=== PATIENT | male | born 1980 | race Caucasian/White ===

== ENCOUNTER 2017-05-05 18:14 | Inpatient (IN) | payer OTHER ==
[2017-05-05 18:58] LABS: BASOPHIL 1.1 % (0-2.0); EOSINOPHIL 0.9 % (0-4.5); MCH 29.7 pg (25.7-33.7); MCHC 33.6 g/dl (32.0-35.9); MEAN CELL VOLUME 88.6 fl (80-96); NEUTROPHILS 78.3 % (42.8-82.8); PLATELET COUNT 195 K/MM3 (134-434); RDW 13.4 % (11.9-15.9); WHITE BLOOD COUNT 10.7 K/mm3 (4.0-10.0)
[2017-05-05 19:20] LABS: INR 1.16 (0.82-1.09); PROTHROMBIN TIME (PATIENT) 12.8 SEC (9.98-11.88)
[2017-05-05 19:40] LABS: ALBUMIN 3.8 g/dl (3.4-5.0); ALK PHOS 116 U/L (45-117); ANION GAP 7 (8-16); BILIRUBIN,TOTAL 0.3 mg/dL (0.2-1.0); CALCIUM 8.3 mg/dL (8.5-10.1); CO2 26 mmol/L (21-32); CREATININE 0.9 mg/dL (0.7-1.3); GLUCOSE,RANDOM 91 mg/dL (74-106); SGOT/AST 11 U/L (15-37); SGPT/ALT 28 U/L (12-78); TOT PROT 7.7 g/dl (6.4-8.2)
--- NOTE | 2017-05-05 19:52 | PDOC ---
History of Present Illness - General History Source: Patient Exam Limitations: No Limitations - History of Present Illness Initial Comments: 05/05/17 20:00 The patient is a 36-year-old male, with a significant past medical hx of epilepsy, who presents to the ED s/p 3 seizures at work today and fever. Pt states that his seizures lasted a few seconds. The pt has seizures twice a month and usually he falls down when he is having one. Pt takes Carbamazepine, Vimpat, and Clobazam. Pts temperature was measured to be 100.1 upon arrival to the ED. He also reports having 1 week of pain in rectum and has noted some swelling in the area. The pain radiates to his groin area. Pt is followed by a Neurologist at [facility]. The patient reports cough but only in the morning. He denies any chills, nausea, vomiting, diarrhea, or abdominal pain. He denies any chest pain or shortness of breath. <Rita Leon - Last Filed: 05/06/17 00:25> - General History Source: Patient Exam Limitations: No Limitations <Anabela Thomas - Last Filed: 05/06/17 00:54> - General Chief Complaint: Seizure Stated Complaint: FEVER,SEIZURE Time Seen by Provider: 05/05/17 19:31 Past History <Rita Leon - Last Filed: 05/06/17 00:25> - Past Medical History Seizures: Yes (EPILEPSY.) - Suicide/Smoking/Psychosocial Hx Smoking History: Never smoked Hx Alcohol Use: No Drug/Substance Use Hx: No Substance Use Type: None <Anabela Thomas - Last Filed: 05/06/17 00:54> - Past Medical History Allergies/Adverse Reactions: Allergies Allergy/AdvReac Type Severity Reaction Status Date / Time No Known Allergies Allergy Verified 05/05/17 18:15 Home Medications: Ambulatory Orders Carbamazepine [Tegretol -] 600 mg PO BID 05/05/17 Clobazam [Onfi -] 15 mg PO BID 05/05/17 Lacosamide [Vimpat -] 200 mg PO BID 05/05/17 Review of Systems - Review of Systems Able to Perform ROS?: Yes Comments:: 05/05/17 20:01 GENERAL/CONSTITUTIONAL: (+)fever. No chills. No weakness. HEAD, EYES, EARS, NOSE AND THROAT: No change in vision. No ear pain or discharge. No sore throat. CARDIOVASCULAR: No chest pain or shortness of breath. RESPIRATORY: (+)cough. No wheezing, or hemoptysis. GASTROINTESTINAL: No nausea, vomiting, diarrhea or constipation. GENITOURINARY: (+)swelling near rectum, pain to area, groin pain. No dysuria, frequency, or change in urination. MUSCULOSKELETAL: No joint or muscle swelling. No neck or back pain. SKIN: No rash NEUROLOGIC: (+)seizure. No headache, vertigo, loss of consciousness, or change in strength/sensation. ENDOCRINE: No increased thirst. No abnormal weight change. HEMATOLOGIC/LYMPHATIC: No anemia, easy bleeding, or history of blood clots. ALLERGIC/IMMUNOLOGIC: No hives or skin allergy. <Rita Leon - Last Filed: 05/06/17 00:25> *Physical Exam - Vital Signs Last Vital Signs Temp Pulse Resp BP Pulse Ox 100 F H 89 18 141/73 100 05/05/17 19:26 05/05/17 18:15 05/05/17 18:15 05/05/17 18:15 05/05/17 18:15 - Physical Exam Comments: 05/05/17 20:03 GENERAL: Awake, alert, and fully oriented, in no acute distress HEAD: Head is atraumatic EYES: PERRLA, EOMI, sclera anicteric, conjunctiva clear ENT: Auricles normal inspection, hearing grossly normal, nares patent, oropharynx clear without exudates. Moist mucosa NECK: Normal ROM, supple, no lymphadenopathy, JVD, or masses LUNGS: Breath sounds equal, clear to auscultation bilaterally. No wheezes, and no crackles HEART: Regular rate and rhythm, normal S1 and S2, no murmurs, rubs or gallops ABDOMEN: Soft, nontender, normoactive bowel sounds. No guarding, no rebound. No masses EXTREMITIES: Normal range of motion, no edema. No clubbing or cyanosis. No cords, erythema, or tenderness NEUROLOGICAL: Cranial nerves II through XII intact. Normal speech, normal gait SKIN: Warm, Dry, normal turgor, no rashes or lesions noted Rectal Exam: (+)right-sided perianal fullness and induration with pain on digital exam. Mild erythema. No visible scrotal or inguinal erythema. Testicals are nontender. <Rita Leon - Last Filed: 05/06/17 00:25> - Vital Signs Last Vital Signs Temp Pulse Resp BP Pulse Ox 100 F H 89 18 141/73 100 05/05/17 19:26 05/05/17 18:15 05/05/17 18:15 05/05/17 18:15 05/05/17 18:15 <Anabela Thomas - Last Filed: 05/06/17 00:54> ED Treatment Course - LABORATORY CBC & Chemistry Diagram: 05/05/17 18:50 05/05/17 18:54 - ADDITIONAL ORDERS Additional order review: Laboratory Results 05/05/17 05/05/17 05/05/17 18:54 18:54 18:54 PT with INR 12.80 H INR 1.16 H Sodium 136 Potassium 3.9 Chloride 103 Carbon Dioxide 26 Anion Gap 7 L BUN 16 Creatinine 0.9 Creat Clearance w eGFR > 60 Random Glucose 91 Lactic Acid 1.0 Calcium 8.3 L Total Bilirubin 0.3 AST 11 L ALT 28 Alkaline Phosphatase 116 Total Protein 7.7 Albumin 3.8 05/05/17 18:50 RBC 4.48 MCV 88.6 MCHC 33.6 RDW 13.4 MPV 8.0 Neutrophils % 78.3 Lymphocytes % 11.0 Monocytes % 8.7 Eosinophils % 0.9 Basophils % 1.1 <Rita Leon - Last Filed: 05/06/17 00:25> - LABORATORY CBC & Chemistry Diagram: 05/05/17 18:50 05/05/17 18:54 - ADDITIONAL ORDERS Additional order review: Laboratory Results 05/05/17 05/05/17 05/05/17 18:54 18:54 18:54 PT with INR 12.80 H INR 1.16 H Sodium 136 Potassium 3.9 Chloride 103 Carbon Dioxide 26 Anion Gap 7 L BUN 16 Creatinine 0.9 Creat Clearance w eGFR > 60 Random Glucose 91 Lactic Acid 1.0 Calcium 8.3 L Total Bilirubin 0.3 AST 11 L ALT 28 Alkaline Phosphatase 116 Total Protein 7.7 Albumin 3.8 05/05/17 18:50 RBC 4.48 MCV 88.6 MCHC 33.6 RDW 13.4 MPV 8.0 Neutrophils % 78.3 Lymphocytes % 11.0 Monocytes % 8.7 Eosinophils % 0.9 Basophils % 1.1 <Anabela Thomas - Last Filed: 05/06/17 00:54> Medical Decision Making - Medical Decision Making 05/06/17 00:17 Dr. Foster was paged and notified via phone service. Case was discussed with Dr. Foster at 00:25 and pt will be admitted to the Hospitalist service. <Rita Leon - Last Filed: 05/06/17 00:25> - Medical Decision Making 05/05/17 19:50 36 yo male with h/o epilepsy here today s/p three seizures at work. is followed by nuerology at [facility]. take vimpat, carbamezepine, and Clobazam. has had a pain in his rectum for 1 week. now having fever x 3 days. now at baseline. seizure lasted only few seconds. usually falls down. no n/v no focal nuero deficit. has been compliant with medications. on exam awake alert head at. lungs clear heart rrr no mrg. abd soft nt. rectum right sided perianal fullness, induration with pain digital exam. mild erythema. no visible scrotal or inguinal erythema. testicle nontender. ext wwp. differential: infection sepsis, perirectal abscess, subtherapuetic levels. plan ct pelvis/ rectum, fluids, labs, cultures. tylenol 05/06/17 00:23 d/w surgery regarding noted 2/x 1 cm abscess perianal on ct. d/w patient. will see pt in am. aayush admit for iv antiobtiocs. and control of seizures. <Anabela Thomas - Last Filed: 05/06/17 00:54> *DC/Admit/Observation/Transfer - Attestations Scribe Attestion: 05/05/17 20:04 Documentation prepared by Rita Leon, acting as medical receptionist assistant for Anabela Thomas MD. <Rita Leon - Last Filed: 05/06/17 00:25> - Discharge Dispostion Admit: Yes <Anabela Thomas - Last Filed: 05/06/17 00:54> Diagnosis at time of Disposition: Seizure, Perianal abscess
[2017-05-05] MEDS ORDERED: SODIUM CHLORIDE 0.9% 1000 ML INFUS.BAG IV ONE (19:53)
[2017-05-05] MEDS ORDERED: ACETAMINOPHEN 1000 MG/100 ML VIAL (NON FORMULARY) IVPB ONE (19:53)
[2017-05-05] MEDS ORDERED: ACETAMINOPHEN INJECTION 100 ML IVPB ONE (20:10)
[2017-05-06] MEDS ORDERED: CLINDAMYCIN 900 MG PREMIX IVPB 50 ML IVPB ONE ×2 (00:10→00:17)
[2017-05-06] MEDS ORDERED: IBUPROFEN 600 MG TABLET (FP) PO ONE ×2 (00:43→00:53)
--- NOTE | 2017-05-06 01:01 | HP ---
CHIEF COMPLAINT: rectal pain/fever PCP: none, follows with a neurologist at [facility] HISTORY OF PRESENT ILLNESS: This is a 36 year old male with a past medical history of seizure disorder who presented to the ED with a 1 week h/o anal pain and fever x 3 days. Pt also s/p seizure x 3 today at work. Upon exam, reports pain is slightly better after tylenol and motrin. ER course was notable for: (1) WBC 10.7, lactic acid 1.0 (2) CT with perianal abscess (3) clindamycin 900mg given x 1 Recent Travel: pt denies PAST MEDICAL HISTORY: seizure disorder PAST SURGICAL HISTORY: pt denies Social History: Smoking: pt denies Alcohol: pt denies Drugs: pt denies Family History: mother and father alive and well, no medical problems 2 brothers, 3 sisters alive and well, no medical problems 2 children, one with asthma Allergies No Known Allergies Allergy (Verified 05/05/17 18:15) HOME MEDICATIONS: 3 Medication Instructions Recorded Carbamazepine [Tegretol -] 600 mg PO BID 05/05/17 Clobazam [Onfi -] 15 mg PO BID 05/05/17 Lacosamide [Vimpat -] 200 mg PO BID 05/05/17 REVIEW OF SYSTEMS CONSTITUTIONAL: Present: fever, chills Absent: diaphoresis, generalized weakness, malaise, loss of appetite, weight change HEENT: Absent: rhinorrhea, nasal congestion, throat pain, throat swelling, difficulty swallowing, mouth swelling, ear pain, eye pain, visual changes CARDIOVASCULAR: Absent: chest pain, syncope, palpitations, irregular heart rate, lightheadedness , peripheral edema RESPIRATORY: Absent: cough, shortness of breath, dyspnea with exertion, orthopnea, wheezing, stridor, hemoptysis GASTROINTESTINAL: Present: anal pain Absent: abdominal pain, abdominal distension, nausea, vomiting, diarrhea, constipation, melena, hematochezia GENITOURINARY: Absent: dysuria, frequency, urgency, hesitancy, hematuria, flank pain, genital pain MUSCULOSKELETAL: Absent: myalgia, arthralgia, joint swelling, back pain, neck pain SKIN: Absent: rash, itching, pallor HEMATOLOGIC/IMMUNOLOGIC: Absent: easy bleeding, easy bruising, lymphadenopathy, frequent infections ENDOCRINE: Absent: unexplained weight gain, unexplained weight loss, heat intolerance, cold intolerance NEUROLOGIC: Present: seizure Absent: headache, focal weakness or paresthesias, dizziness, unsteady gait, mental status changes, bladder or bowel incontinence PSYCHIATRIC: Absent: anxiety, depression, suicidal or homicidal ideation, hallucinations. PHYSICAL EXAMINATION Vital Signs - 24 hr 3 05/05/17 05/05/17 05/06/17 18:15 19:26 00:23 Temperature 100.1 F H 100 F H 98.8 F Pulse Rate 89 Respiratory 18 Rate Blood Pressure 141/73 O2 Sat by Pulse 100 Oximetry (%) GENERAL: Awake, alert, and fully oriented, in no acute distress. HEAD: Normal with no signs of trauma. EYES: Pupils equal, round and reactive to light, extraocular movements intact, sclera anicteric, conjunctiva clear. No lid lag. EARS, NOSE, THROAT: Ears normal, nares patent, oropharynx clear without exudates. Moist mucous membranes. NECK: Normal range of motion, supple without lymphadenopathy, JVD, or masses. LUNGS: Breath sounds equal, clear to auscultation bilaterally. No wheezes, and no crackles. No accessory muscle use. HEART: Regular rate and rhythm, normal S1 and S2 without murmur, rub or gallop. ABDOMEN: Soft, nontender, not distended, normoactive bowel sounds, no guarding, no rebound, no masses. No hepatomegaly or splenomegaly. GENITALIA: + area of erythema, tenderness and induration approx 5.5cm x 2cm to the right perianal area. induration extends into perineum between anus and scrotum MUSCULOSKELETAL: Normal range of motion at all joints. No bony deformities or tenderness. No CVA tenderness. UPPER EXTREMITIES: 2+ pulses, warm, well-perfused. No cyanosis. No clubbing. No peripheral edema. LOWER EXTREMITIES: 2+ pulses, warm, well-perfused. No calf tenderness. No peripheral edema. NEUROLOGICAL: Cranial nerves II-XII intact. Normal speech. Normal gait. PSYCHIATRIC: Cooperative. Good eye contact. Appropriate mood and affect. SKIN: Warm, dry, normal turgor, no rashes or lesions noted, normal capillary refill. Laboratory Results - last 24 hr 3 05/05/17 05/05/17 05/05/17 05/05/17 18:50 18:54 18:54 20:35 WBC 10.7 H RBC 4.48 Hgb 13.3 Hct 39.7 MCV 88.6 MCH 29.7 MCHC 33.6 RDW 13.4 Plt Count 195 MPV 8.0 Neutrophils % 78.3 Lymphocytes % 11.0 Monocytes % 8.7 Eosinophils % 0.9 Basophils % 1.1 PT with INR 12.80 H INR 1.16 H Sodium 136 Potassium 3.9 Chloride 103 Carbon Dioxide 26 Anion Gap 7 L BUN 16 Creatinine 0.9 Creat Clearance w eGFR > 60 Random Glucose 91 Lactic Acid 1.0 Calcium 8.3 L Total Bilirubin 0.3 AST 11 L ALT 28 Alkaline Phosphatase 116 Total Protein 7.7 Albumin 3.8 Carbamazepine 8.8 Radiology Reports Abdomen and pelvis CT (with contrast) Clinical information: rectal pain, evaluate for perirectal abscess Multiplanar imaging was performed following the intravenous administration of nonionic contrast. Oral contrast was not administered. There appears to be a subtle approximately 2 x 1 cm area of fluid accumulation posterior to the anus (transaxial images 172 - 174). There is no definite perianal or perirectal soft tissue edema. The ischiorectal fossae appear symmetric. There is no obvious rectal wall thickening. No extraluminal air is identified. The liver, spleen, pancreas, gallbladder, adrenal glands and kidneys demonstrate no discrete abnormality. No evidence of pneumoperitoneum, free intraperitoneal fluid or bowel obstruction. There is no aortic aneurysm. No obvious lymphadenopathy is seen. There is no definite pelvic pathology. Impression: There appears to be a subtle 2 x 1 cm area of fluid accumulation within the posterior perianal region which may represent a small abscess. MRI evaluation may be considered, nonemergent unless otherwise clinically indicated. No definite perianal or perirectal soft tissue edema is identified. Reported By: Steven Bartlett MD 05/05/17 2327 ASSESSMENT/PLAN: 36yM with a PMH of seizure disorder presented to the ED with anal pain and fever. Perianal abscess - start levaquin and flagyl - surgery consulted by ED. Dr. Hankins to attend pt in am - NPO for possible OR Seizure disorder - missed PM dose on 05/06 of seizure meds, will give now - vimpat nonformulary, pt instructed to have family bring in. DVT PPX - chemoprophylaxis deferred as pt fully ambulatory and expected LOS <48h FEN - NS @ 100cc/hr while NPO - BMP in AM - NPO for possible OR Dispo: Pt currently requires inpatient management of his emergent condition but expected LOS is <2 midnights. Visit type - Emergency Visit Emergency Visit: Yes ED Registration Date: 05/05/17 Care time: The patient presented to the Emergency Department on the above date and was hospitalized for further evaluation of their emergent condition. - New Patient This patient is new to me today: Yes Date on this admission: 05/06/17 - Critical Care Critical Care patient: No
[2017-05-06] MEDS: LEVOFLOXACIN 500 MG IVPB 100 ML IVPB SCH ×2 (02:23→21:27)
[2017-05-06] MEDS: SODIUM CHLORIDE 1,000 ML IV SCH ×3 (02:23→08:41)
[2017-05-06] MEDS: carBAMazepine 200 MG TABLET PO SCH ×3 (02:23→21:54)
[2017-05-06] MEDS: cloBAZam 10 MG TABLET PO SCH ×3 (02:23→21:26)
[2017-05-06] MEDS ORDERED: LEVOFLOXACIN 500 MG IVPB 100 ML IVPB ONE (02:24)
[2017-05-06] MEDS: METRONIDAZOLE 500 MG PREMIXED 100 ML IVPB SCH ×4 (04:01→17:21)
[2017-05-06 04:22] VITALS: BMI 34.6
[2017-05-06 08:26] LABS: EOSINOPHIL 1.8 % (0-4.5); MCH 29.8 pg (25.7-33.7); MCHC 33.4 g/dl (32.0-35.9); MEAN CELL VOLUME 89.2 fl (80-96); MEAN PLT VOLUME 8.7 fl (7.5-11.1); PLATELET COUNT 191 K/MM3 (134-434); RDW 13.3 % (11.9-15.9); WHITE BLOOD COUNT 9.8 K/mm3 (4.0-10.0)
[2017-05-06 08:40] LABS: ANION GAP 9 (8-16); CALCIUM 7.7 mg/dL (8.5-10.1); CO2 25 mmol/L (21-32); CREATININE 0.8 mg/dL (0.7-1.3); GLUCOSE,RANDOM 81 mg/dL (74-106); MAGNESIUM 2.2 mg/dL (1.8-2.4)
[2017-05-06] MEDS ORDERED: morphine CARPU-JECT 2 MG/1 ML DISP.SYRIN IVPUSH ONE (09:20)
[2017-05-06] MEDS ORDERED: PT OWN MED DRAWER 7, Y5N ONE (09:50)
[2017-05-06] MEDS: LACOSAMIDE 50 MG TABLET PO SCH ×2 (09:55→21:25)
[2017-05-06] MEDS ORDERED: carBAMazepine 200 MG TABLET PO SCH (10:00)
[2017-05-06] MEDS ORDERED: cloBAZam 10 MG TABLET PO SCH (10:00)
[2017-05-06] MEDS ORDERED: LIDOCAINE HCL 1%, 10 MG/ML (20ML VIAL) ONE (11:19)
--- NOTE | 2017-05-06 11:19 | HOSP ---
Subjective - Review of Symptoms Subjective: PT seen and examined. His pain is improved following morphine, however it is painful to move around Physical Examination Vital Signs: Vital Signs Temperature 98 F 05/06/17 09:04 Pulse Rate 69 05/06/17 09:04 Respiratory Rate 18 05/06/17 09:04 Blood Pressure 116/63 05/06/17 09:04 O2 Sat by Pulse Oximetry (%) 98 05/06/17 04:00 Constitutional: Yes: Well Nourished Eyes: Yes: Conjunctiva Clear Neck: Yes: Trachea Midline Cardiovascular: Yes: Regular Rate and Rhythm, S1, S2 Respiratory: Yes: Regular, CTA Bilaterally Gastrointestinal: Yes: Normal Bowel Sounds, Soft ...Rectal Exam: Yes: Other (R medial buttock/perineum erythema, indurated, ++ tenderness) Edema: No Neurological: Yes: Alert, Oriented, Cran Nerves II-XII Intact Labs: CBC, BMP 05/06/17 06:00 05/06/17 06:00 Hospitalist Encounter Assessment: Assessment: 36 year old male with seizure disorder admitted with rectal pain Plan: 1. Perianal abscess - I&D tomorrow - Continue levaquin (day 2), flagyl - Surgery consult appreciated - CT scan noted - NPO after midnight 2. Seizure disorder - No seizures reported this AM - Continue Vimpat - Continue Tegretol - Continue onfi
--- NOTE | 2017-05-06 11:27 | CONSULT ---
Consult - text type - Consultation Consultation Note: 36 yr old wtih smal early perianal abcess continue antibiotics warm compresses and plan I&D for am
[2017-05-06] MEDS ORDERED: SODIUM CHLORIDE 1,000 ML IV SCH ×2 (11:36→18:08)
[2017-05-06] MEDS: oxyCODONE HCL 5 MG TABLET PO PRN ×3 (13:03→23:48)
[2017-05-06] MEDS ORDERED: ACETAMINOPHEN 325 MG TABLET (FP) ONE (17:52)
[2017-05-06] MEDS: ACETAMINOPHEN 325 MG TABLET (FP) PO PRN ×2 (17:53→23:47)
[2017-05-06] MEDS ORDERED: SODIUM CHLORIDE 1,000 ML IV STA ×2 (18:00→19:30)
--- NOTE | 2017-05-06 19:32 | HOSP ---
Subjective - Review of Symptoms Events since last encounter: Advised at around 6:00pm patient spiked fever to 102.5 and BP dropped 125 to 106 systolic. Ordered NS x 2L bolus, then continue @ 125mL/hr. Blood and urine cultures, cbc, cmp, lactic acid. Physical Examination Vital Signs: Vital Signs Temperature 102.1 F H 05/06/17 19:20 Pulse Rate 105 H 05/06/17 19:00 Respiratory Rate 20 05/06/17 19:00 Blood Pressure 123/60 05/06/17 19:00 O2 Sat by Pulse Oximetry (%) 98 05/06/17 09:00 Labs: CBC, BMP 05/06/17 06:00 05/06/17 06:00
[2017-05-06 20:23] LABS: BASOPHIL 0.4 % (0-2.0); EOSINOPHIL 0.7 % (0-4.5); MCH 29.9 pg (25.7-33.7); MCHC 33.9 g/dl (32.0-35.9); MEAN CELL VOLUME 88.2 fl (80-96); MEAN PLT VOLUME 8.2 fl (7.5-11.1); NEUTROPHILS 76.5 % (42.8-82.8); PLATELET COUNT 189 K/MM3 (134-434); RDW 13.1 % (11.9-15.9); WHITE BLOOD COUNT 9.7 K/mm3 (4.0-10.0)
[2017-05-06 21:01] LABS: ALK PHOS 94 U/L (45-117); ANION GAP 7 (8-16); BILIRUBIN,TOTAL 0.5 mg/dL (0.2-1.0); CALCIUM 7.5 mg/dL (8.5-10.1); CO2 26 mmol/L (21-32); CREATININE 1.1 mg/dL (0.7-1.3); GLUCOSE,RANDOM 124 mg/dL (74-106); SGOT/AST 7 U/L (15-37); SGPT/ALT 20 U/L (12-78); TOT PROT 6.7 g/dl (6.4-8.2)
[2017-05-06 21:57] LABS: URINE APPEARANCE CLEAR; URINE BILIRUBIN NEGATIVE (NEGATIVE); URINE BLOOD NEGATIVE (NEGATIVE); URINE COLOR YELLOW; URINE GLUCOSE (UA) 1+ (NEGATIVE); URINE KETONE NEGATIVE (NEGATIVE); URINE NITRITE NEGATIVE (NEGATIVE); URINE PROTEIN NEGATIVE (NEGATIVE); URINE UROBILINOGEN NEGATIVE mg/dL (0.2-1.0)
[2017-05-06] MEDS ORDERED: PSEUDOEPHEDRINE HCL 60 MG TABLET PO ONE (23:27)
[2017-05-06] MEDS ORDERED: PSEUDOEPHEDRINE HCL 30 MG TABLET PO ONE (23:45)
[2017-05-07] MEDS: METRONIDAZOLE 500 MG PREMIXED 100 ML IVPB SCH ×2 (01:22→17:57)
[2017-05-07] MEDS: oxyCODONE HCL 5 MG TABLET PO PRN ×3 (05:06→19:54)
[2017-05-07] MEDS: ACETAMINOPHEN 325 MG TABLET (FP) PO PRN ×2 (05:07→19:55)
[2017-05-07] MEDS ORDERED: PT OWN MED DRAWER 7, Y5N ONE ×2 (09:42→14:49)
[2017-05-07] MEDS ORDERED: ONDANSETRON 4 MG/2 ML VIAL IVPUSH PRN (09:46)
[2017-05-07] MEDS ORDERED: oxyCODONE HCL 5 MG TABLET PO PRN (09:46)
[2017-05-07] MEDS: cloBAZam 10 MG TABLET PO SCH ×2 (09:46→21:16)
[2017-05-07] MEDS ORDERED: HYDROmorphone HCL CARPU-JECT 1 MG/1 ML DISP.SYRIN IVPUSH PRN ×2 (09:46→11:29)
[2017-05-07] MEDS: carBAMazepine 200 MG TABLET PO SCH ×2 (09:46→21:15)
[2017-05-07] MEDS: LACOSAMIDE 50 MG TABLET PO SCH ×2 (09:47→21:17)
[2017-05-07] MEDS ORDERED: LACTATED RINGERS SOLUTION 1,000 ML IV SCH ×2 (10:00→11:29)
[2017-05-07] MEDS ORDERED: PROPOFOL 20 ML ONE ×2 (10:14)
[2017-05-07] MEDS ORDERED: MIDAZOLAM HCL 2 MG/2 ML SINGLE DOSE VIAL ONE (10:14)
[2017-05-07] MEDS ORDERED: SUCCINYLCHOLINE CHLORIDE 200 MG/10 ML VIAL ONE ×2 (10:15→10:16)
[2017-05-07] MEDS ORDERED: ROCURONIUM BROMIDE 50 MG/5 ML VIAL ONE (10:17)
[2017-05-07] MEDS ORDERED: DEXAMETHASONE SOD PHOSPHATE 4 MG/1 ML VIAL ONE (10:18)
[2017-05-07] MEDS ORDERED: PHENYLEPHRINE HCL 10 MG/1 ML SINGLE DOSE VIAL ONE (10:18)
[2017-05-07] MEDS ORDERED: LIDOCAINE HCL/PF 2% SDV 5ML VIAL ONE (10:18)
[2017-05-07] MEDS ORDERED: METRONIDAZOLE 500 MG PREMIXED 100 ML IVPB ONE (10:24)
[2017-05-07] MEDS ORDERED: DESFLURANE GAS 240 ML BOTTLE IH ONE (10:26)
[2017-05-07 10:42] LABS: URINE LEUK ESTERASE Negative (NEGATIVE)
[2017-05-07] MEDS ORDERED: BUPIVACAINE HCL/PF 0.5% (5MG/ML) 10 ML VIAL ONE (10:44)
[2017-05-07] MEDS ORDERED: LIDOCAINE HCL 1%, 10 MG/ML (20ML VIAL) ONE (10:44)
--- NOTE | 2017-05-07 11:05 | OP ---
Operative Note - Note: Operative Date: 05/07/17 Pre-Operative Diagnosis: abdiel rectal abcess Operation: I&D of perirectal abcess Post-Operative Diagnosis: Same as Pre-op Surgeon: Osman Foster Anesthesia: MAC Specimens Removed: cultures Estimated Blood Loss (mls): 25
[2017-05-07] MEDS ORDERED: SODIUM CHLORIDE 1,000 ML IV SCH (11:29)
[2017-05-07] MEDS ORDERED: morphine CARPU-JECT 4 MG/1 ML DISP.SYRIN IVPUSH ONE (12:57)
--- NOTE | 2017-05-07 13:03 | PN ---
Physical Exam: SUBJECTIVE: Patient seen and examined at bedside. Able to ambulate with asssitance to the bathroom. s/p I&D, has rectal pain. OBJECTIVE: Vital Signs Period Temp Pulse Resp BP Sys/Wells Pulse Ox Last 24 Hr 97.7 F-102.8 F 69-105 16-20 105-127/54-79 95-100 GENERAL: The patient is awake, alert, and fully oriented, in no acute distress. LUNGS: Breath sounds equal, clear to auscultation bilaterally, no wheezes, no crackles, no accessory muscle use. HEART: Regular rate and rhythm, S1, S2 without murmur, rub or gallop. ABDOMEN: Soft, nontender, nondistended, normoactive bowel sounds, no guarding, no rebound, EXTREMITIES: 2+ pulses, warm, well-perfused, no edema NEUROLOGICAL: Cranial nerves II through XII grossly intact. Normal speech, steady gait BUTTOCK: right buttock at the intergluteal fold, surgical incision with packing , sanguinous drainage on dressing Laboratory Results - last 24 hr 05/06/17 05/06/17 05/06/17 20:16 20:17 20:17 WBC 9.7 RBC 4.15 Hgb 12.4 Hct 36.6 MCV 88.2 MCH 29.9 MCHC 33.9 RDW 13.1 Plt Count 189 MPV 8.2 Neutrophils % 76.5 Lymphocytes % 13.7 D Monocytes % 8.7 Eosinophils % 0.7 Basophils % 0.4 Sodium 138 Potassium 3.6 Chloride 105 Carbon Dioxide 26 Anion Gap 7 L BUN 12 Creatinine 1.1 D Creat Clearance w eGFR > 60 Random Glucose 124 H D Lactic Acid 1.5 Calcium 7.5 L Total Bilirubin 0.5 D AST 7 L D ALT 20 D Alkaline Phosphatase 94 Total Protein 6.7 Albumin 3.0 L D Urine Color Urine Appearance Urine pH Ur Specific Patriot Urine Protein Urine Glucose (UA) Urine Ketones Urine Blood Urine Nitrite Urine Bilirubin Urine Urobilinogen Ur Leukocyte Esterase 05/06/17 20:30 WBC RBC Hgb Hct MCV MCH MCHC RDW Plt Count MPV Neutrophils % Lymphocytes % Monocytes % Eosinophils % Basophils % Sodium Potassium Chloride Carbon Dioxide Anion Gap BUN Creatinine Creat Clearance w eGFR Random Glucose Lactic Acid Calcium Total Bilirubin AST ALT Alkaline Phosphatase Total Protein Albumin Urine Color Yellow Urine Appearance Clear Urine pH 6.0 Ur Specific Patriot 1.015 Urine Protein Negative Urine Glucose (UA) 1+ H Urine Ketones Negative Urine Blood Negative Urine Nitrite Negative Urine Bilirubin Negative Urine Urobilinogen Negative Ur Leukocyte Esterase Negative Current Medications Generic Name Dose Route Start Last Admin Trade Name Daivdq PRN Reason Stop Dose Admin Acetaminophen 650 mg 05/07/17 11:29 Tylenol - PO Q4H PRN FEVER OR PAIN Carbamazepine 600 mg 05/07/17 22:00 Tegretol - PO BID REBEKAH Clobazam 15 mg 05/07/17 22:00 Onfi - PO BID REBEKAH Docusate Sodium 300 mg 05/07/17 22:00 Colace - PO HS REBEKAH Metronidazole 100 mls @ 100 mls/hr 05/07/17 18:00 Flagyl 500mg Premixed Ivpb - IVPB Q8H-IV REBEKAH Ceftriaxone Sodium 1 gm/ 50 mls @ 100 mls/hr 05/07/17 13:00 05/07/17 15:05 Dextrose IVPB 100 mls/hr DAILY REBEKAH Administration Sodium Chloride 1,000 mls @ 75 mls/hr 05/07/17 16:16 Normal Saline - IV ASDIR REBEKAH Lacosamide 200 mg 05/07/17 22:00 Vimpat - PO BID REBEKAH Oxycodone HCl 5 mg 05/07/17 11:29 05/07/17 13:58 Roxicodone - PO 05/08/17 09:45 5 mg Q4H PRN Administration MILD PAIN Polyethylene Glycol 17 gm 05/07/17 22:00 Miralax (For Daily Use) - PO BID [facility] ASSESSMENT/PLAN 36 year-old male with a PMH significant for seizure disorder, admitted for perianal abscess. Perianal abscess s/p I&D 05/07 --Tm 102.8, Tc 97.7; no leukocytosis --stopped levaquin; continue metronidazole, start ceftriaxone --morphine 2mg x 1 --oxycodone, tylenol PRN --bowel regimen Seizure disorder --continue carbamazepine, clobazam, lacosamide F/E/N Fluids: NS @ 75mL/hr Electrolytes: replete as indicated Nutrition: regular diet DVT prophylaxis: lovenox Dispo: continues to require inpatient care. Full code. Visit type - Emergency Visit Emergency Visit: Yes ED Registration Date: 05/06/17 Care time: The patient presented to the Emergency Department on the above date and was hospitalized for further evaluation of their emergent condition. - New Patient This patient is new to me today: Yes Date on this admission: 05/07/17 - Critical Care Critical Care patient: No
--- NOTE | 2017-05-07 13:53 | OP ---
DATE OF OPERATION: 05/07/2017 PREOPERATIVE DIAGNOSIS: Perirectal abscess. POSTOPERATIVE DIAGNOSIS: Perirectal abscess. PROCEDURE: Incision and drainage of perirectal abscess. SURGEON: Osman Hooker MD ANESTHESIA: MAC with local. COMPLICATIONS: None. BLEEDING: Minimal. Patient tolerated procedure well. This is a 36-year-old male who presents with a perirectal abscess at outside on physical exam and confirmed by CAT scan. The patient is taken to the operating room for an incision and drainage of the infection. In the operating room, he was placed in supine position. After administration of MAC anesthesia, he was placed in lithotomy position. The area was prepped and draped. A timeout was observed. A cruciate incision was performed on the left side over the bulging mass. Purulent drainage was easily expressed at this point. Digital examination of the cavity was performed and all pockets properly drained. Irrigation with saline and control of bleeding with cautery and then the wound was packed with iodoform packing, 1-inch gauze. Sterile dressing was applied. The patient was returned to the recovery room awake, alert, in stable condition. He tolerated the procedure well. OSMAN HOOKER M.D. [id number]
[2017-05-07] MEDS: CEFTRIAXONE 1 GM in DEXTROSE 5%-WATER - 50 ML IVPB SCH (15:05)
[2017-05-07] MEDS: DOCUSATE SODIUM 100 MG CAPSULE (FP) PO SCH (21:17)
[2017-05-07] MEDS: POLYETHYLENE GLYCOL 3350 119 GM BTL PO SCH (21:17)
[2017-05-07] MEDS ORDERED: LEVOFLOXACIN 500 MG IVPB 100 ML IVPB SCH (22:00)
[2017-05-08] MEDS: METRONIDAZOLE 500 MG PREMIXED 100 ML IVPB SCH ×3 (01:35→17:11)
[2017-05-08] MEDS: oxyCODONE HCL 5 MG TABLET PO PRN ×2 (05:39→17:03)
[2017-05-08 06:58] LABS: BASOPHIL 0.6 % (0-2.0); EOSINOPHIL 3.5 % (0-4.5); MCHC 34.1 g/dl (32.0-35.9); NEUTROPHILS 63.5 % (42.8-82.8); PLATELET COUNT 191 K/MM3 (134-434); WHITE BLOOD COUNT 6.4 K/mm3 (4.0-10.0)
[2017-05-08 07:31] LABS: ALBUMIN 2.8 g/dl (3.4-5.0); ANION GAP 8 (8-16); CALCIUM 7.8 mg/dL (8.5-10.1); CO2 27 mmol/L (21-32); CREATININE 0.9 mg/dL (0.7-1.3); GLUCOSE,RANDOM 97 mg/dL (74-106); MAGNESIUM 2.4 mg/dL (1.8-2.4); SGOT/AST 7 U/L (15-37); SGPT/ALT 17 U/L (12-78)
[2017-05-08 07:33] LABS: ALK PHOS 74 U/L (45-117); BILIRUBIN,TOTAL 0.3 mg/dL (0.2-1.0); TOT PROT 6.4 g/dl (6.4-8.2)
--- NOTE | 2017-05-08 09:30 | PN ---
Progress Note (short form) - Note Progress Note: Post op day#1.S/P I&D of rectal abscess under MAC uneventful.Patient stable.No any anesthesia related problem.Patient DC from the anesthesia care.
[2017-05-08] MEDS ORDERED: cefTRIAXone SODIUM 1 GM VIAL ONE (09:44)
[2017-05-08] MEDS ORDERED: DEXTROSE 5%-WATER - 50 ML IVPB ONE (09:44)
[2017-05-08] MEDS: ENOXAPARIN NA (PORCINE) 40 MG/0.4 ML DISP.SYRIN SQ SCH (09:53)
[2017-05-08] MEDS: cloBAZam 10 MG TABLET PO SCH ×2 (09:54→21:37)
[2017-05-08] MEDS: LACOSAMIDE 50 MG TABLET PO SCH ×2 (09:54→21:37)
[2017-05-08] MEDS: POLYETHYLENE GLYCOL 3350 119 GM BTL PO SCH ×2 (09:55→22:00)
[2017-05-08] MEDS: carBAMazepine 200 MG TABLET PO SCH ×2 (10:04→21:38)
[2017-05-08] MEDS: CEFTRIAXONE 1 GM in DEXTROSE 5%-WATER - 50 ML IVPB SCH (10:07)
--- NOTE | 2017-05-08 12:02 | PN ---
Progress Note (short form) - Note Progress Note: ID 36 year old Citizen Of [place] immigrant in [place] 30 years history of seizure disorder presents with perirctal abscess. No prior history of this or IBD or Diabetes. Went to OR yesterday for drainage under anesthesia. Was over 102 temp on admission Selected Entries 05/08/17 09:01 Temperature 98.7 F Respiratory 20 Rate Blood Pressure 114/60 Alert NAD Lung Clear Cor S1 S2 RR no murmur Abd Soft pos BS nontender no mass Rectal Linear open incision with packing in place Microbiology 05/06/17 20:30 Urine - Urine Clean Catch Urine Culture - Final NO GROWTH OBTAINED 05/06/17 20:05 Blood - Peripheral Venous Blood Culture - Preliminary NO GROWTH OBTAINED AFTER 24 HOURS, INCUBATION TO CONTINUE FOR 4 DAYS. 05/06/17 20:00 Blood - Peripheral Venous Blood Culture - Preliminary NO GROWTH OBTAINED AFTER 24 HOURS, INCUBATION TO CONTINUE FOR 4 DAYS. 05/05/17 20:35 Blood - Peripheral Venous Blood Culture - Preliminary NO GROWTH OBTAINED AFTER 48 HOURS, INCUBATION TO CONTINUE FOR 3 DAYS. 05/05/17 20:35 Blood - Peripheral Venous Blood Culture - Preliminary NO GROWTH OBTAINED AFTER 48 HOURS, INCUBATION TO CONTINUE FOR 3 DAYS. Laboratory Tests 05/08/17 05/08/17 06:20 06:20 WBC 6.4 D Hgb 12.3 Hct 36.1 Plt Count 191 Creatinine 0.9 Assessment Perineal abscess post drainage day 1 doing well History of Seizures on meds Plan Continue current therapy Ceftriaxone and metronidazole with switch to Augmentin 875 bid once given clearance to leave [facility] LISA Problem List - Problems (1) Perianal abscess Code(s): K61.0 - ANAL ABSCESS (2) Seizure Code(s): R56.9 - UNSPECIFIED CONVULSIONS
--- NOTE | 2017-05-08 12:13 | PN ---
Physical Exam: SUBJECTIVE: Patient seen and examined, states he still is having pain on the surgical site but overall feels better. OBJECTIVE: Vital Signs Period Temp Pulse Resp BP Sys/Wells Pulse Ox Last 24 Hr 97.7 F-100.6 F 68-88 20-20 114-145/54-81 95-96 GENERAL: The patient is awake, alert, and fully oriented, in no acute distress. LUNGS: Breath sounds equal, clear to auscultation bilaterally, no wheezes, no crackles, no accessory muscle use. HEART: Regular rate and rhythm, S1, S2 without murmur, rub or gallop. ABDOMEN: Soft, nontender, nondistended, normoactive bowel sounds, no guarding, no rebound, EXTREMITIES: 2+ pulses, warm, well-perfused, no edema NEUROLOGICAL: Cranial nerves II through XII grossly intact. Normal speech, steady gait, history of chronic seizures BUTTOCK: right buttock at the intergluteal fold with a surgical incision with packing, sanguinous drainage on dressing Laboratory Results - last 24 hr 05/08/17 05/08/17 06:20 06:20 WBC 6.4 D RBC 4.10 Hgb 12.3 Hct 36.1 MCV 88.0 MCH 30.0 MCHC 34.1 RDW 13.0 Plt Count 191 MPV 8.0 Neutrophils % 63.5 Lymphocytes % 20.8 D Monocytes % 11.6 H Eosinophils % 3.5 D Basophils % 0.6 Sodium 141 Potassium 4.1 Chloride 106 Carbon Dioxide 27 Anion Gap 8 BUN 9 D Creatinine 0.9 Creat Clearance w eGFR > 60 Random Glucose 97 D Calcium 7.8 L Magnesium 2.4 Total Bilirubin 0.3 D AST 7 L ALT 17 Alkaline Phosphatase 74 D Total Protein 6.4 Albumin 2.8 L Active Medications Generic Name Dose Route Start Last Admin Trade Name Freq PRN Reason Stop Dose Admin Acetaminophen 650 mg 05/07/17 11:29 05/07/17 19:55 Tylenol - PO 650 mg Q4H PRN Administration FEVER OR PAIN Carbamazepine 600 mg 05/07/17 22:00 05/08/17 10:04 Tegretol - PO 600 mg BID REBEKAH Administration Clobazam 15 mg 05/07/17 22:00 05/08/17 09:54 Onfi - PO 15 mg BID REBEKAH Administration Docusate Sodium 300 mg 05/07/17 22:00 05/07/17 21:17 Colace - PO 300 mg HS REBEKAH Administration Enoxaparin Sodium 40 mg 05/08/17 10:00 05/08/17 09:53 Lovenox - SQ 40 mg DAILY REBEKAH Administration Metronidazole 100 mls @ 100 mls/hr 05/07/17 18:00 05/08/17 09:52 Flagyl 500mg Premixed Ivpb - IVPB 100 mls/hr Q8H-IV REBEKAH Administration Ceftriaxone Sodium 1 gm/ 50 mls @ 100 mls/hr 05/07/17 13:00 05/08/17 10:07 Dextrose IVPB 100 mls/hr DAILY REBEKAH Administration Sodium Chloride 1,000 mls @ 75 mls/hr 05/07/17 16:16 05/08/17 00:00 Normal Saline - IV 75 mls/hr ASDIR REBEKAH Administration Lacosamide 200 mg 05/07/17 22:00 05/08/17 09:54 Vimpat - PO 200 mg BID REBEKAH Administration Polyethylene Glycol 17 gm 05/07/17 22:00 05/08/17 09:55 Miralax (For Daily Use) - PO 17 gm BID REBEKAH Administration ASSESSMENT/PLAN: This is a 36 year old male with a past medical history of seizure disorder who presented to the ED with a 1 week history anal pain and fever for approximately 3 days. He also reported to have had a seizure at work prior to admission. He sees a neurologist at [facility] and states he is compliant with all his home medications. ID: S/P I&D of perirectal abscess on 05/07 A/P: Fever, leukocytosis now resolved On IV Flagyl and Ceftriaxone HIV negative Morphine PRN for pain On Colace TID, will encourage sitz baths ID consulted and following Will switch to Augmentin 875 bid on d/c Neurology: Seizure disorder, chronic A/P: On home medications of carbamazepine, Clobazam and Lacosamide Has neurologist at [facility] Fluids: Tolerating PO Electrolytes: monitor daily Nutrition: regular diet Prophylaxis: DVT: Lovenox GI: deferred Dispo: continues to require inpatient care. Discharge once cleared by surgery. Full code. Visit type - Emergency Visit Emergency Visit: Yes ED Registration Date: 05/06/17 Care time: The patient presented to the Emergency Department on the above date and was hospitalized for further evaluation of their emergent condition. - New Patient This patient is new to me today: Yes Date on this admission: 05/08/17 - Critical Care Critical Care patient: No - Discharge Referral Referred to [facility] No
[2017-05-08 14:57] LABS: HIV 1 & 2 AB NEGATIVE; HIV 1 AGp24 NEGATIVE
[2017-05-08] MEDS: SODIUM CHLORIDE 1,000 ML IV SCH ×2 (15:13)
[2017-05-08] MEDS ORDERED: morphine CARPU-JECT 4 MG/1 ML DISP.SYRIN IVPUSH PRN (15:49)
[2017-05-08] MEDS: ACETAMINOPHEN 325 MG TABLET (FP) PO PRN (17:04)
[2017-05-08] MEDS ORDERED: PT OWN MED DRAWER 7, Y5N ONE (21:20)
[2017-05-08] MEDS: DOCUSATE SODIUM 100 MG CAPSULE (FP) PO SCH (21:37)
[2017-05-09] MEDS: METRONIDAZOLE 500 MG PREMIXED 100 ML IVPB SCH ×2 (02:49→11:15)
[2017-05-09] MEDS: ACETAMINOPHEN 325 MG TABLET (FP) PO PRN (02:50)
[2017-05-09] MEDS: oxyCODONE HCL 5 MG TABLET PO PRN (02:50)
[2017-05-09 06:50] LABS: ALBUMIN 2.7 g/dl (3.4-5.0); ANION GAP 7 (8-16); CALCIUM 7.8 mg/dL (8.5-10.1); CO2 28 mmol/L (21-32); GLUCOSE,RANDOM 98 mg/dL (74-106); SGOT/AST 12 U/L (15-37); SGPT/ALT 21 U/L (12-78)
[2017-05-09 06:51] LABS: ALK PHOS 74 U/L (45-117); BILIRUBIN,TOTAL 0.3 mg/dL (0.2-1.0); TOT PROT 6.3 g/dl (6.4-8.2)
[2017-05-09 07:00] LABS: EOSINOPHIL 5.5 % (0-4.5); MCH 29.3 pg (25.7-33.7); MEAN CELL VOLUME 88.9 fl (80-96); MEAN PLT VOLUME 8.3 fl (7.5-11.1); NEUTROPHILS 55.6 % (42.8-82.8); PLATELET COUNT 201 K/MM3 (134-434); RDW 13.1 % (11.9-15.9); WHITE BLOOD COUNT 5.3 K/mm3 (4.0-10.0)
[2017-05-09] MEDS ORDERED: PT OWN MED DRAWER 7, Y5N ONE ×2 (09:26→17:54)
[2017-05-09] MEDS: cloBAZam 10 MG TABLET PO SCH (09:30)
[2017-05-09] MEDS: ENOXAPARIN NA (PORCINE) 40 MG/0.4 ML DISP.SYRIN SQ SCH (09:31)
[2017-05-09] MEDS: LACOSAMIDE 50 MG TABLET PO SCH (09:31)
[2017-05-09] MEDS: carBAMazepine 200 MG TABLET PO SCH (09:31)
[2017-05-09] MEDS ORDERED: CEFTRIAXONE 1 G/50 ML PREMIX 50 ML IVPB SCH (10:00)
[2017-05-09] MEDS: POLYETHYLENE GLYCOL 3350 119 GM BTL PO SCH (10:01)
--- NOTE | 2017-05-09 14:59 | DS ---
Physical Exam: SUBJECTIVE: Patient seen and examined at the bedside. His and family in attendance. OBJECTIVE: I called Dr. Foster for surgical clearance for patient's discharge. As per surgeon, patient is cleared for discharge and is to follow up with him on Monday for post op follow-up. informed me that patient should have the wound care done daily by lightly packing wound enough to keep wound open to allow healing with iodoform gauze. Wound care instructions placed in patient's discharge instructions and I will also go over and dress the wound with patient's prior to discharge in an effort to provide hands on teaching. Also assured patient and family that I am here tomorrow and they can call me if they have any concerns or questions. At this time, patient does not have insurance coverage for presciptions, threfore Augmentin 875mg BID called into patient's pharmacy [facility]. [place] [facility] will charge patient $14.00 for 14 pills, [facility] will charge patient $20 for 14 pills. Paper script provided to patient in case he wants to go to another pharmacy. Vital Signs Period Temp Pulse Resp BP Sys/Wells Pulse Ox Last 24 Hr 98.0 F-99.1 F 61-83 18-18 114-142/67-79 95-96 PHYSICAL EXAM GENERAL: The patient is awake, alert, and fully oriented, in no acute distress. LUNGS: Breath sounds equal, clear to auscultation bilaterally, no wheezes, no crackles, no accessory muscle use. HEART: Regular rate and rhythm, S1, S2 without murmur, rub or gallop. ABDOMEN: Soft, nontender, nondistended, normoactive bowel sounds, no guarding, no rebound, EXTREMITIES: 2+ pulses, warm, well-perfused, no edema NEUROLOGICAL: Cranial nerves II through XII grossly intact. Normal speech, steady gait, history of chronic seizures BUTTOCK: right buttock at the intergluteal fold with a surgical incision with packing, sanguinous drainage on dressingwound care to be done before discharge in the prescence of patient's LABS Laboratory Results - last 24 hr 05/09/17 05/09/17 05:40 05:40 WBC 5.3 RBC 4.06 Hgb 11.9 Hct 36.1 MCV 88.9 MCH 29.3 MCHC 33.0 RDW 13.1 Plt Count 201 MPV 8.3 Neutrophils % 55.6 Lymphocytes % 27.0 D Monocytes % 10.9 H Eosinophils % 5.5 H Basophils % 1.0 Sodium 141 Potassium 4.4 Chloride 106 Carbon Dioxide 28 Anion Gap 7 L BUN 12 D Creatinine 1.0 Creat Clearance w eGFR > 60 Random Glucose 98 Calcium 7.8 L Total Bilirubin 0.3 AST 12 L D ALT 21 D Alkaline Phosphatase 74 Total Protein 6.3 L Albumin 2.7 L HOSPITAL COURSE: Date of Admission:05/07/17 Date of Discharge: 05/09/17 ASSESSMENT/PLAN: This is a 36 year old male with a past medical history of seizure disorder who presented to the ED with a 1 week history anal pain and fever for approximately 3 days. He also reported to have had a seizure at work prior to admission. He sees a neurologist at [facility] and states he is compliant with all his home medications. ID: S/P I&D of perirectal abscess on 05/07 A/P: Fever, leukocytosis now resolved On IV Flagyl and Ceftriaxone until today, then switched over to Augmentin 875mg BID x 7 days HIV negative On Oxycodone 5mg daily 1 hour before wound care On Colace TID, will encourage sitz baths Cleared by surgery for discharge with a follow up on May 12/2017 DAILY WOUND CARE: - premedicate patient with Oxycodone 5mg 1 hour before wound care - wash hands, dry and place on gloves - remove old packing and make sure the packing is completely removed - irrigate (wash) wound with sterile saline provided to your - pat wound dry - pack wound with iodoform gauze provided enough packing to keep wound open - secure with a sterile 4x4 dressing Neurology: Seizure disorder, chronic A/P: On home medications of carbamazepine, Clobazam and Lacosamide Has neurologist at [facility] and patient has agreed to follow up with No reported seizure activity during hospitalization Disposition: Discharge home with surgery follow up. Full Code. Minutes to complete discharge: 60 Discharge Summary Reason For Visit: SEIZURE,PERIANAL ABSCESS Current Active Problems Perianal abscess (Acute) Seizure (Acute) Condition: Stable - Instructions Diet, Activity, Other Instructions: Mr Bridges: You were admitted on 05/06/2017 for a perianal abscess. You had a surgical procedure called incision and drainage with Dr. Huntley. You will need to continue to are for this wound daily as follows: DAILY WOUND CARE: - premedicate patient with Oxycodone 5mg 1 hour before wound care - wash hands, dry and place on gloves - remove old packing and make sure the packing is completely removed - irrigate (wash) wound with sterile saline provided to your - pat wound dry - pack wound with iodoform gauze provided enough packing to keep wound open - secure with a sterile 4x4 dressing Please return to the ER if wound develops a foul odor or if you develop a fever. Please continue the antibiotics of Augmentin 875mg twice per day starting tomorrow 05/10/2017. You have received IV antibiotics since you have been hospitalized but still need to continue receiving these antibiotics. ( medications called into [facility] which will cost $20 for 14 pills, [facility] will charge you $13.95). [address] Huntley and schedule a time you can go see him this Monday. It is also important that you see your neurologist at [facility] as well as your primary care physician. Please continue taking Colace over the counter so that you are not straining to have a bowel movement. Please call me with any questions that you may have. Margarita Christine [place] [employer] [phone] [facility] Referrals: Osman Foster [Staff Physician] - Disposition: HOME - Home Medications Comprehensive Discharge Medication List: Ambulatory Orders Carbamazepine [Tegretol -] 600 mg PO BID 05/05/17 Clobazam [Onfi -] 15 mg PO BID 05/05/17 Lacosamide [Vimpat -] 200 mg PO BID 05/05/17 Acetaminophen [Tylenol .Regular Strength -] 650 mg PO Q4H PRN #0 tablet Amox-Tr/K Cl [Augmentin 875-125mg Tablet -] 1 tab PO BID@0800,1730 #14 tablet Oxycodone HCl [Roxicodone -] 5 mg PO Q6H PRN #7 tablet MDD 4 tabs 05/09/17 This patient is new to me today: No Emergency Visit: Yes ED Registration Date: 05/07/17 Care time: The patient presented to the Emergency Department on the above date and was hospitalized for further evaluation of their emergent condition. Critical Care patient: No - Discharge Referral Referred to [facility] No
[2017-05-09 15:21] VITALS: BP 120/62; PULSE 66; TEMP 98.5
[2017-05-10] MEDS ORDERED: AMOX TR/POT CLAV 875MG/125MG TABLETS (FP) PO SCH (08:00)
--- NOTE | 2017-05-12 09:21 | EKG ---
Test Reason : Blood Pressure : / mmHG Vent. Rate : 084 BPM Atrial Rate : 084 BPM P-R Int : 174 ms QRS Dur : 102 ms QT Int : 340 ms P-R-T Axes : 033 085 045 degrees QTc Int : 401 ms NORMAL SINUS RHYTHM INCOMPLETE RIGHT BUNDLE BRANCH BLOCK NO PREVIOUS ECGS AVAILABLE Confirmed by MC FERREIRA MD ([id number]) on 05/12/2017 9:21:34 AM Referred By: Confirmed By:MC FERREIRA MD
== END 2017-05-09 18:00 | disposition home or self-care (01) | DRG 223 ==
LOC: JER 18:14 → JERBED 05-06 01:01 → J6S 05-06 03:30 → OBSVTOIN 05-07 07:00
PROVIDERS: ADMIT Internal Medicine; ATTEND Nurse Practitioner Family
PROC: 0D9P0ZX Drainage of Rectum, Open Approach, Diagnostic (ICD-10-PCS; principal; 2017-05-07 10:00)
DX: K61.1 Rectal abscess (principal); G40.409 Other generalized epilepsy and epileptic syndromes, not intractable, without status epilepticus; G40.89 Other seizures; R50.9 Fever, unspecified; D72.829 Elevated white blood cell count, unspecified; E66.9 Obesity, unspecified; Z68.34 Body mass index [BMI] 34.0-34.9, adult
CPT/HCPCS: 36415; 71010-TC; 74177-TC; 80048; 80053; 80156; 81003; 83605; 83735; 84100; 85025; 85610; 87040; 87070; 87086; 87186; 87205; 87389; 93005; 93010; 94760; 99284-25; G0378

== ENCOUNTER 2018-07-22 18:09 | Emergency (ER) | payer OTHER ==
[2018-07-22 18:14] VITALS: BMI 36.6
--- NOTE | 2018-07-22 18:37 | PDOC ---
History of Present Illness - General Chief Complaint: Seizure Stated Complaint: SEIZURE,FALL Time Seen by Provider: 07/22/18 18:37 History Source: Patient Exam Limitations: No Limitations - History of Present Illness Initial Comments: 07/22/18 18:55 Patient is a 38 year old male with a PMHx of Seizure disorder (diagnosed around 5 years old) who presented to the ED after three episodes of tonic-clonic seizures. First one was yesterday at 1600, twice today at 1400 and 1700. Patient reports all three episodes occurred when he was walking of standing up with the last one of him falling to the floor head down, hitting the right side of his face. According to his , Patient did have loss of consciousness, lasting for about one minute but with no urinary or bowel incontinence and no tongue biting. Patient reports having persistent headache since then, which prompted this hospital visit. However, patient denies any acute vision changes. Patient denies missing doses of his seizure medications and reports that his medication, Clobazam, was increased from 10mg to 15mg three to four months ago and Carbamazepine was lowered from 600mg BID to once a day. Patient also report having "flu-like" symptoms of rhinorrhea, cough with clear phlegm, full body aches and fevers with Tmax 103.0 associated with chills, for which he took NSAID's for. Otherwise, patient denies any chest pain, palpitations, shortness of breath, nausea, vomiting, diarrhea, constipation. PMHx: Seizure Disorder (Diagnosed 5 years ago) PSHx: I&D of perianal abscess (2017) Social Hx: Denies alcohol use Denies drug use Denies smoking Lives with and kids Does not work due to his seizure history Family Hx: mother and father alive and well, no medical problems 2 brothers, 3 sisters alive and well, no medical problems 2 children, one with asthma Medications: Clobazam 15mg BID Vimpat 200mg BID Carbamazepine 600mg daily (decreased recently from BID to once a day) Allergies: NKDA Past History - Past Medical History Allergies/Adverse Reactions: Allergies Allergy/AdvReac Type Severity Reaction Status Date / Time No Known Allergies Allergy Verified 07/22/18 18:11 Home Medications: Ambulatory Orders RX: Clobazam [Onfi -] 15 mg PO BID 05/05/17 RX: Lacosamide [Vimpat] 200 mg PO BID 05/05/17 RX: Carbamazepine [Tegretol -] 600 mg PO BID #42 tablet 07/22/18 COPD: No Seizures: Yes (EPILEPSY.) - Immunization History Immunization Up to Date: Yes - Suicide/Smoking/Psychosocial Hx Smoking History: Never smoked Hx Alcohol Use: No Drug/Substance Use Hx: No Substance Use Type: None Review of Systems - Review of Systems Able to Perform ROS?: Yes Constitutional: Yes: Chills, Fever HEENTM: Yes: Nose Congestion. No: Tearing, Ear Discharge, Throat Pain, Throat Swelling Respiratory: Yes: Cough. No: Shortness of Breath, SOB at Rest, Stridor, Wheezing Cardiac (ROS): No: Chest Pain, Edema, Irregular Heart Rate, Lightheadedness ABD/GI: No: Constipated, Diarrhea, Nausea, Vomiting, Indigestion, Abdominal cramping : No: Burning, Dysuria, Flank Pain, Hematuria Musculoskeletal: No: Joint Pain, Joint Swelling Integumentary: No: Bruising, Erythema, Pruritus, Rash Neurological: Yes: Headache, Seizure, Dizziness. No: Numbness, Paresthesia, Tingling, Tremors, Weakness Psychiatric: No: Anxiety, Depression *Physical Exam - Vital Signs Last Vital Signs Temp Pulse Resp BP Pulse Ox 98.4 F 71 18 132/66 99 07/22/18 18:11 07/22/18 18:11 07/22/18 18:11 07/22/18 18:11 07/22/18 18:11 - Physical Exam General Appearance: Yes: Other (Awake, Alert, oriented x3, and in no acute distress ) HEENT: positive: EOMI, CAM, Normal ENT Inspection, Pharynx Normal, Other ((+) 1x1cm ecchymosis of the right eye, (-) racoon eyes, (-) pepe's sign, (-) Hemotympanum ). negative: Pharyngeal Erythema, Tonsillar Exudate, Tonsillar Erythema, Rhinorrhea Neck: positive: Other (Supple, normal range of motion, no lymphadenopathy ) Respiratory/Chest: positive: Lungs Clear, Normal Breath Sounds. negative: Respiratory Distress, Accessory Muscle Use, Labored Respiration, Decreased Breath Sounds, Crackles, Rales, Rhonchi, Stridor, Wheezing Cardiovascular: positive: Regular Rhythm, Regular Rate, S1, S2. negative: Edema , JVD Vascular Pulses: Carotid (R): 2+, Carotid (L): 2+ Gastrointestinal/Abdominal: positive: Other (Soft, nontender, nondistended, normoactive bowel sounds, no organomegaly, no rebound or guarding ) Musculoskeletal: positive: Normal Inspection. negative: CVA Tenderness, CVA Tenderness (R), CVA Tenderness (L), Decreased Range of Motion Extremity: positive: Normal Capillary Refill, Normal Inspection, Normal Range of Motion Integumentary: positive: Normal Color, Warm, Ecchymosis (of right eye ) Neurologic: positive: bleach liquor maker II-XII NML intact, Fully Oriented, Alert, Normal Mood/ Affect, Normal Response, Motor Strength 5/5 Moderate Sedation - Procedure Monitoring Vital Signs: Procedure Monitoring Vital Signs Temperature 98.4 F 07/22/18 18:11 Pulse Rate 71 07/22/18 18:11 Respiratory Rate 18 07/22/18 18:11 Blood Pressure 132/66 07/22/18 18:11 O2 Sat by Pulse Oximetry (%) 99 07/22/18 18:11 ED Treatment Course - LABORATORY CBC & Chemistry Diagram: 07/22/18 19:38 07/22/18 19:38 Medical Decision Making - Medical Decision Making 07/22/18 19:24 Patient is a 38 year old male with a PMHx of seizure disorder who presented here s/p three seizure episodes with LOC and fall. Patient fell on the right side of his head, causing him to have persistent headaches. Patient also reports "Flu-Like" symptoms that started yesterday. Will need to rule out acute brain hemorrhage and possible source of seizures. -Head CT w/o contrast ordered -CBC, CMP, MAG, TSH ordered -Carbamazepine levels ordered 07/22/18 20:32 -Patient had another witnessed tonic-clonic seizure episode that lasted 40 seconds and now has post-ictal symptoms of lethargy -Will give his home medications and give extra dose of Carbamazepine. Patient will likely need to go back to taking it BID. -Labs pending -CT Head pending -Will need to monitor for any continuous seizure activities. 07/22/18 22:52 -Patient had no further episodes of Seizures. Spoke to patient in regards to his anti-seizure medications. Explained that he will need to go back to taking Carbamazepine twice a day instead of once a day. Will send him a prescription to his pharmacy and told him to call his Neurologist tomorrow morning for follow up. -Will discharge patient home *DC/Admit/Observation/Transfer Diagnosis at time of Disposition: Seizure - Discharge Dispostion Disposition: HOME Condition at time of disposition: Stable Decision to Admit order: No - Prescriptions Prescriptions: RX: Carbamazepine [Tegretol -] 600 mg PO BID #42 tablet - Referrals - Patient Instructions Printed Discharge Instructions: DI for Seizure Disorder -- Adult Additional Instructions: -You were seen here today for multiple seizure episodes causing you to fall and hit your head. Your Head CT was negative and your labs were wnl. -We recommend you going back to taking 600mg twice a day of Carbamazepine as it may be the reason you had multiple seizure episodes. A prescription has been sent to your Pharmacy. If you are unable to obtain the medications, please use your current medications at home. -We did a flu test and you were negative for it. We recommend alternating between Tylenol and Motrin for any fevers or cold like symptoms. -Please call your Neurologist tomorrow and see him within a week. -If you experience any further seizure activities, return to the emergency department immediately. - Post Discharge Activity
--- NOTE | 2018-07-22 18:40 | PDOC ---
Attending Attestation - HPI HPI: 07/22/18 20:48 The patient is a 38 year old male, with a significant PMH of seizure disorder, who presents to the emergency department with 3 episodes of seizures that happened today. The patient states the first 2 episodes occurred while he was walking and the last one happened around 3:00 pm where he fell and hit the right side of his face. The patients witnessed the seizure and reports patient did not lose consciousness and lasted for one minute. The patient mentions his Clobazam increased from 10 mg to 15 mg three to four months ago. The patient is currently asymptomatic. The patient denies chest pain, shortness of breath, headache and dizziness.Denies fever, chills, nausea, vomit, diarrhea and constipation.Denies dysuria, frequency, urgency and hematuria. Allergies: NKDA Past surgical history: None reported Social history: None reported PCP: None reported Documentation prepared by Bigg Carrasco, acting as medical aide for Nannette Escobar MD. - Physicial Exam PE: 07/22/18 20:51 GENERAL: Awake, alert, and fully oriented, in no acute distress HEAD: No signs of trauma EYES: PERRLA, EOMI, sclera anicteric, conjunctiva clear ENT: Auricles normal inspection, hearing grossly normal, nares patent, oropharynx clear without exudates. Moist mucosa NECK: Normal ROM, supple, no lymphadenopathy, JVD, or masses LUNGS: Breath sounds equal, clear to auscultation bilaterally. No wheezes, and no crackles HEART: Regular rate and rhythm, normal S1 and S2, no murmurs, rubs or gallops ABDOMEN: Soft, nontender, normoactive bowel sounds. No guarding, no rebound. No masses EXTREMITIES: Normal range of motion, no edema. No clubbing or cyanosis. No cords, erythema, or tenderness NEUROLOGICAL: Cranial nerves II through XII grossly intact. Normal speech, normal gait SKIN: Warm, Dry, normal turgor, no rashes or lesions noted. Documentation prepared by Bigg Carrasco, acting as medical aide for Nannette Escobar MD. <Bigg Carrasco - Last Filed: 07/22/18 20:47> - Medical Decision Making 07/22/18 21:30 Pt presents to the ED complaining of seizure x 2 today along with flu like symptoms. Known history of seizure disorder. Reports compliance with his medications, although his dose of carbemezepine has recently been reduced. Patient had a brief tonic clonic seizure in the ED which resolved sponatenously. Will check labs, treat with his evening dose of PO antieplieptics, will check CT head to rule out intracranial injury and will reassess. will discharge home if remains asymptomatic. 07/22/18 21:46 <Nannette Escobar - Last Filed: 07/22/18 21:53>
[2018-07-22 19:58] LABS: BASO % 0.6 % (0-2.0); EOS % 1.7 % (0-4.5); HEMATOCRIT 40.2 % (35.4-49); HEMOGLOBIN 13.5 GM/dL (11.7-16.9); LYMPH % 21.7 % (8-40); MCH 29.5 pg (25.7-33.7); MCHC 33.7 g/dl (32.0-35.9); MEAN CELL VOLUME 87.7 fl (80-96); MEAN PLT VOLUME 8.5 fl (7.5-11.1); MONO % 11.2 % (3.8-10.2); NEUT % 64.8 % (42.8-82.8); PLATELET COUNT 186 K/MM3 (134-434); RBC 4.59 M/mm3 (4.00-5.60); WHITE BLOOD COUNT 7.4 K/mm3 (4.0-10.0)
[2018-07-22 20:29] VITALS: TEMP 98.8
[2018-07-22 20:33] LABS: ALBUMIN 3.8 g/dl (3.4-5.0); ALK PHOS 133 U/L (45-117); ANION GAP 7 MMOL/L (8-16); BILIRUBIN,TOTAL 0.2 mg/dL (0.2-1); BLOOD UREA NITROGEN 17 mg/dL (7-18); CHLORIDE 106 mmol/L (98-107); CO2 26 mmol/L (21-32); CREATININE 1.1 mg/dL (0.55-1.3); GLUCOSE,RANDOM 102 mg/dL (74-106); POTASSIUM 3.6 mmol/L (3.5-5.1); SGOT/AST 20 U/L (15-37); SGPT/ALT 35 U/L (13-61); SODIUM 139 mmol/L (136-145); TOT PROT 7.5 g/dl (6.4-8.2)
[2018-07-22] MEDS ORDERED: LACOSAMIDE 50 MG TABLET PO ONE ×2 (20:39→21:11)
[2018-07-22] MEDS ORDERED: carBAMazepine 200 MG TABLET PO ONE (20:39)
[2018-07-22] MEDS ORDERED: cloBAZam 10 MG TABLET PO ONE (20:40)
[2018-07-22] MEDS ORDERED: carBAMazepine 200 MG TABLET ONE (21:11)
[2018-07-22] MEDS ORDERED: cloBAZam 10 MG TABLET ONE (21:11)
[2018-07-22 23:41] VITALS: BP 135/75; PULSE 77
== END 2018-07-22 23:45 | disposition home or self-care (01) ==
LOC: JER 18:09
DX: G40.909 Epilepsy, unspecified, not intractable, without status epilepticus (principal); S09.8XXA Other specified injuries of head, initial encounter; W18.39XA Other fall on same level, initial encounter; Y93.89 Activity, other specified; Y92.89 Other specified places as the place of occurrence of the external cause; Y99.8 Other external cause status
CPT/HCPCS: 36415; 70450-TC; 80053; 80156; 83735; 84443; 85025; 87804; 99283-25

== ENCOUNTER 2018-12-19 02:07 | Emergency (ER) | payer OTHER ==
[2018-12-19 02:29] VITALS: TEMP 99.1; BMI 38.9
[2018-12-19 03:38] LABS: HEMATOCRIT 40.6 % (35.4-49); HEMOGLOBIN 13.6 GM/dL (11.7-16.9); MCH 29.7 pg (25.7-33.7); MCHC 33.5 g/dl (32.0-35.9); MEAN CELL VOLUME 88.7 fl (80-96); MEAN PLT VOLUME 8.5 fl (7.5-11.1); PLATELET COUNT 193 K/MM3 (134-434); RBC 4.57 M/mm3 (4.00-5.60); RDW 13.2 % (11.9-15.9); WHITE BLOOD COUNT 10.4 K/mm3 (4.0-10.0)
[2018-12-19 04:04] LABS: ALBUMIN 3.8 g/dl (3.4-5.0); BILIRUBIN,TOTAL 0.3 mg/dL (0.2-1); CALCIUM 8.6 mg/dL (8.5-10.1); POTASSIUM 3.5 mmol/L (3.5-5.1); TOT PROT 7.3 g/dl (6.4-8.2)
--- NOTE | 2018-12-19 04:27 | PDOC ---
Documentation entered by Ryan Stanley SCRIBE, acting as scribe for Briseida Beauhcamp DO. Briseida Beauchamp DO: This documentation has been prepared by the Lizeth alarcon Matthew, SCRIBE, under my direction and personally reviewed by me in its entirety. I confirm that the documentation accurately reflects all work, treatment, procedures, and medical decision making performed by me. History of Present Illness - General Chief Complaint: Seizure Stated Complaint: SEIZURES Time Seen by Provider: 12/19/18 02:52 History Source: Patient, Significant Other Exam Limitations: No Limitations - History of Present Illness Initial Comments: 12/19/18 03:15 Patient is a 38 year old male with a significant past medical history of Seizures who presents to the ED with complaints of seizure that occured just prior to ED arrival. As per patient's she was awoken by the patient having a seizure episode. She reports grasping the patient to prevent him from injuring himself. As per patient's she reports calling EMS to have the patient further evaluated shortly after episode concluded, stating it lasted at least 3 minutes. She reports patient is compliant with medications and states he only drinks alcohol on special occasions. Denies chest pain, sob. Denies nausea, vomiting. Denies contact with sick individuals, out of state travelling. Denies dysuria, hematuria. Denies constipation, diarrhea. Denies any other symptoms. Allergies: NKDA Social history: Lives with . No smoking. Social alcohol use. No illicit drugs. Surgical history: None PMD: None Past History - Past Medical History Allergies/Adverse Reactions: Allergies Allergy/AdvReac Type Severity Reaction Status Date / Time No Known Allergies Allergy Verified 12/19/18 02:29 Home Medications: Ambulatory Orders Clobazam [Onfi -] 15 mg PO BID 05/05/17 Lacosamide [Vimpat] 200 mg PO BID 05/05/17 Carbamazepine [Tegretol -] 600 mg PO BID #42 tablet 07/22/18 COPD: No Seizures: Yes (EPILEPSY.) - Immunization History Immunization Up to Date: Yes - Suicide/Smoking/Psychosocial Hx Smoking History: Never smoked Have you smoked in the past 12 months: No Information on smoking cessation initiated: No Hx Alcohol Use: Yes Drug/Substance Use Hx: No Substance Use Type: None Review of Systems - Review of Systems Able to Perform ROS?: Yes Comments:: 12/19/18 03:15 GENERAL/CONSTITUTIONAL: No fever or chills. No weakness. HEAD, EYES, EARS, NOSE AND THROAT: No change in vision. No ear pain or discharge. No sore throat. GASTROINTESTINAL: No nausea, vomiting, diarrhea or constipation. GENITOURINARY: No dysuria, frequency, or change in urination. CARDIOVASCULAR: No chest pain or shortness of breath. RESPIRATORY: No cough, wheezing, or hemoptysis. MUSCULOSKELETAL: No joint or muscle swelling or pain. No neck or back pain. SKIN: No rash NEUROLOGIC: No headache, vertigo, loss of consciousness, or change in strength/ sensation. ENDOCRINE: No increased thirst. No abnormal weight change. HEMATOLOGIC/LYMPHATIC: No anemia, easy bleeding, or history of blood clots. ALLERGIC/IMMUNOLOGIC: No hives or skin allergy. *Physical Exam - Vital Signs Last Vital Signs Temp Pulse Resp BP Pulse Ox 99.1 F 81 18 117/79 96 12/19/18 02:07 12/19/18 02:07 12/19/18 02:07 12/19/18 02:07 12/19/18 02:07 - Physical Exam Comments: 12/19/18 03:15 GENERAL: in no acute distress HEAD: No signs of trauma EYES: PERRLA, EOMI, sclera anicteric, conjunctiva clear, visual acuity grossly intact ENT: Auricles normal inspection, hearing grossly normal, nares patent, oropharynx clear without exudates. Moist mucosa NECK: Normal ROM, supple, no lymphadenopathy, JVD, or masses LUNGS: Breath sounds equal, clear to auscultation bilaterally. No wheezes, and no crackles. Normal work of breathing. HEART: Regular rate and rhythm, normal S1 and S2, no murmurs, rubs or gallops ABDOMEN: Soft, nontender, normoactive bowel sounds. No guarding, no rebound. No masses. Non-distended. CHEST WALL: BACK: No midline tenderness. EXTREMITIES: Normal range of motion, no edema. No clubbing or cyanosis. No erythema, or tenderness NEUROLOGICAL: +muscle strength 5/5 all extremities and sensory intact. drowsy but arousable, and fully oriented x4, Cranial nerves II through XII grossly intact. Normal speech, SKIN: Warm, Dry, normal turgor, no rashes or lesions noted. ED Treatment Course - LABORATORY CBC & Chemistry Diagram: 12/19/18 03:32 12/19/18 03:32 - ADDITIONAL ORDERS Additional order review: Laboratory Results 12/19/18 12/19/18 03:32 03:32 Sodium 142 Potassium 3.5 Chloride 110 H Carbon Dioxide 27 Anion Gap 6 L BUN 21 H Creatinine 1.0 Est GFR (CKD-EPI)AfAm 110.17 Est GFR (CKD-EPI)NonAf 95.05 Random Glucose 114 H Calcium 8.6 Total Bilirubin 0.3 AST 14 L ALT 33 Alkaline Phosphatase 99 Total Protein 7.3 Albumin 3.8 Carbamazepine 1.0 12/19/18 03:32 RBC 4.57 MCV 88.7 MCHC 33.5 RDW 13.2 MPV 8.5 Medical Decision Making - Medical Decision Making 12/19/18 04:21 38-year-old male status post witnessed seizure while laying in bed Labs were unremarkable Tegretol is at the lower limit of therapeutic levels Patient will be discharged home to follow up with his regular neurologist *DC/Admit/Observation/Transfer Diagnosis at time of Disposition: Seizure - Discharge Dispostion Disposition: HOME Condition at time of disposition: Stable Decision to Admit order: No - Referrals - Patient Instructions Printed Discharge Instructions: DI for Seizure Disorder -- Adult Additional Instructions: Follow-up with your neurologist at the [facility] clinic. You may need to have your medications adjusted. Do not drive or operate heavy dysuria until they clear you to do so. - Post Discharge Activity - Attestations Scribe Attestion: 12/19/18 03:05 Documentation prepared by Ryan Stanley, acting as medical artist for Briseida Beauchamp DO. Physician Attestion: 12/19/18 04:24 I, Dr Briseida Beauchamp, attest that this document has been prepared under my direction and personally reviewed by me in its entirety. I further attest, that it accurately reflects all work, procedures and medical decision making performed by me.
[2018-12-19 05:29] VITALS: BP 104/59; PULSE 68
== END 2018-12-19 05:06 | disposition home or self-care (01) ==
LOC: JER 02:07
DX: G40.909 Epilepsy, unspecified, not intractable, without status epilepticus (principal)
CPT/HCPCS: 36415; 80053; 80156; 85027; 99282-25

== ENCOUNTER 2020-04-08 05:16 | Day surgery (SDC) | payer SELFPAY ==
[2020-04-07 17:35] VITALS: BMI 33.9
[2020-04-08 10:15] LABS: HEMATOCRIT 40.7 % (35.4-49); HEMOGLOBIN 13.6 GM/dL (11.7-16.9); MCH 29.7 pg (25.7-33.7); MCHC 33.4 g/dl (32.0-35.9); MEAN CELL VOLUME 88.8 fl (80-96); MEAN PLT VOLUME 8.2 fl (7.5-11.1); PLATELET COUNT 196 K/MM3 (134-434); RBC 4.59 M/mm3 (4.00-5.60); RDW 13.2 % (11.9-15.9); WHITE BLOOD COUNT 5.1 K/mm3 (4.0-10.0)
[2020-04-08] MEDS ORDERED: MIDAZOLAM HCL 2 MG/2 ML SINGLE DOSE VIAL ONE ×2 (11:05→12:07)
[2020-04-08] MEDS ORDERED: fentaNYL CITRATE 250 MCG/5 ML VIAL ONE (11:05)
[2020-04-08 11:09] LABS: ALBUMIN 3.8 g/dl (3.4-5.0); BILIRUBIN,TOTAL 0.3 mg/dL (0.2-1); BLOOD UREA NITROGEN 17.6 mg/dL (7-18); CALCIUM 8.4 mg/dL (8.5-10.1); CREATININE 1.1 mg/dL (0.55-1.3); TOT PROT 7.6 g/dl (6.4-8.2)
[2020-04-08] MEDS ORDERED: BUPIVACAINE HCL 50 ML ONE (11:10)
[2020-04-08] MEDS ORDERED: ePHEDrine SULFATE 50 MG/1 ML AMPULE ONE (11:57)
[2020-04-08] MEDS ORDERED: BENZOIN/ALOE VERA/STORAX/TOLU 58 ML BOTTLE ONE (12:04)
[2020-04-08] MEDS ORDERED: DEXAMETHASONE SOD PHOSPHATE 4 MG/1 ML VIAL ONE (12:16)
[2020-04-08] MEDS ORDERED: ONDANSETRON 4 MG/2 ML VIAL IVPUSH PRN (12:56)
--- NOTE | 2020-04-08 12:59 | PN ---
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 Jimbo Lara MD FACS
[2020-04-08] MEDS ORDERED: LACTATED RINGERS SOLUTION 1,000 ML IV SCH (13:00)
--- NOTE | 2020-04-08 13:08 | OP ---
Operative Note - Note: Operative Date: 04/08/20 Pre-Operative Diagnosis: fistula in ano Operation: exam under anesthesia/rigid proctosigmoidoscopy/fistulotomy/fistulectomy Findings: subcutaneous fistula in ano in prone position originating from 4 o'clock w/marked granulation tissue and scarring. Post-Operative Diagnosis: Same as Pre-op Surgeon: Jimbo Lara Anesthesiologist/REDYE HAND: Kareem Mcdonald Anesthesia: Spinal Specimens Removed: none Estimated Blood Loss (mls): 10
[2020-04-09] MEDS: oxyCODONE HCL 5 MG TABLET PO PRN ×2 (01:20→06:20)
[2020-04-09 07:10] VITALS: PULSE 62
--- NOTE | 2020-04-09 08:33 | PN ---
Progress Note (short form) - Note Progress Note: 39yo M s/p EUA and fistulectomy POD1, pt seen and examined at bedside. Pt was admitted overnight for observation, due to extended numbness from spinal anesthesia. Today, pt states he feels much better and is ready to go home. Pt denies fever, chills, n/v. PE: Gen: A&O X3 Resp: breathing comfortably Abd; soft, nontender, nondistended. Problem List - Problems (1) Perianal fistula Assessment/Plan: Plan -pt is cleared for discharge, pt should follow up with Dr. Lara in the office next week. Code(s): K60.3 - ANAL FISTULA
[2020-04-09 09:04] VITALS: BP 109/57; TEMP 98
--- NOTE | 2020-04-13 14:04 | OP ---
DATE OF OPERATION: 04/08/2020 PREOPERATIVE DIAGNOSIS: Fistula in ano. POSTOPERATIVE DIAGNOSIS: Fistula in ano. PROCEDURE: Exam under anesthesia, rigid proctosigmoidoscopy and fistulotomy and fistulectomy. SURGEON: Jimbo Lara MD ANESTHESIA: Spinal. OPERATIVE FINDINGS: There was evidence of previous drainage of a perirectal/perianal abscess in the past with an opening on the skin of the buttocks at approximately the 4 o'clock position with the patient in the prone position. Proctosigmoidoscopic examination to 20 cm was unremarkable. The internal opening of the fistula followed a straight tract in the subcutaneous plane into the rectum below the dentate line and the rest of the findings were unremarkable. PROCEDURE: The patient was placed on the operating table in the prone jackknife position after the placement of spinal anesthesia. The buttocks and perirectal and perianal area was prepped with Betadine and draped in sterile fashion after the buttocks had been taped on both sides to provide lateral retraction. Exam under anesthesia and rigid sigmoidoscopy were carried out and the previously noted findings were observed. Next, the opening in the skin was cannulated with the probe and with ease it passed to the internal opening as described above. Next, hydrogen peroxide was injected into the tract as well and confirmed a single opening in the rectum. The groove director was then placed and then using electrocautery the tissue from the skin through the subcutaneous fistula tract was divided. The tract was curetted and then hemostasis secured with electrocautery. The wound was copiously irrigated with sterile saline. Hemostasis was verified again and then the wound was left open and packed with a pack consisting of Xeroform and Surgicel. Dry sterile dressings were placed and the procedure terminated at this point, and the patient transferred to the postanesthesia care unit in stable condition awake and alert. ESTIMATED BLOOD LOSS: 10 mL REPLACEMENTS: Crystalloid. DRAINS: None. SPECIMEN: None. I, Jimbo Lara, was physically present in the operating room from the time the patient was placed on the operating table until he was transferred to the postanesthesia care unit in my accompaniment. MD KELLY Marquez/[id number] [facility]
== END 2020-04-09 10:57 | disposition home or self-care (01) ==
LOC: JASU-SURG 05:16 → JASUSAT 05:16 → JASU-SURG 19:31 → J2C 19:31 → J6S 20:20 → JASUSAT 04-09 10:57
PROVIDERS: ATTEND Surgery
PROC: 0DBQ0ZZ Excision of Anus, Open Approach (ICD-10-PCS; principal; 2020-04-08 11:30)
DX: K60.3 Anal fistula (principal); E66.01 Morbid (severe) obesity due to excess calories
CPT/HCPCS: 36415; 80053; 85027; 94760